=== PATIENT | female | born 1965 | race Hispanic/Latino ===

== ENCOUNTER 2017-11-26 00:45 | Observation (INO) | payer BC ==
[2017-11-26 00:51] VITALS: BMI 31.7
--- NOTE | 2017-11-26 01:07 | ED PDOC ---
Arrival/HPI - General Chief Complaint: Chest Pain Time Seen by Provider: 11/26/17 00:50 Historian: Patient - History of Present Illness Narrative History of Present Illness (Text): 11/26/17 01:07 A 52 year old female, whose past medical history includes seizure disorder and colitis, presents to the emergency department complaining of intermittent chest discomfort since yesterday. Patient reports chest is a pressure like sensation with intermittent dyspnea on exertion and an occasional non-productive cough. Patient reports no history of fever or chills. Patient denies any fever, chills, nausea, vomiting, diarrhea, urinary symptoms, back pain, neck pain, headache, dizziness, or any other complaints. PMD: Dr. Davila Time/Duration: Other (earlier today) Symptom Onset: Gradual Symptom Course: Unchanged Activities at Onset: Light Context: Home Past Medical History - Provider Review Nursing Documentation Reviewed: Yes - Cardiac Hx Pacemaker: No - Neurological Hx Paralysis: No - Endocrine/Metabolic Hx Endocrine Disorders: (HYPOGLYCEMIA) - Hematological/Oncological Hx Blood Transfusions: No Hx Blood Transfusion Reaction: No - Musculoskeletal/Rheumatological Hx Musculoskeletal Disorders: Yes Hx Falls: No Hx Herniated Disk: Yes (CERVICAL [id number]) - Gastrointestinal Hx Gastrointestinal Disorders: Yes Hx Colitis: Yes - Psychiatric Hx Depression: No Hx Emotional Abuse: No Hx Physical Abuse: No Hx Substance Use: No - Surgical History Hx Tonsillectomy: Yes - Anesthesia Hx Anesthesia: Yes Hx Anesthesia Reactions: No Hx Malignant Hyperthermia: No - Suicidal Assessment Feels Threatened In Home Enviroment: No Family/Social History - Physician Review Nursing Documentation Reviewed: Yes Family/Social History: Unknown Family HX Smoking Status: Never Smoked Hx Alcohol Use: Yes (OCCASIONALLY AND LESS) Hx Substance Use: No Allergies/Home Meds Allergies/Adverse Reactions: Allergies Penicillins Allergy (Verified 11/26/17 00:52) RASH Sulfa (Sulfonamide Antibiotics) Allergy (Verified 11/26/17 00:52) RASH Home Medications: Home Meds Medication Instructions Recorded Confirmed Acetaminophen [Hca Non-Aspirin Es] 2 tab PO Q8 PRN 12/26/11 12/26/11 Cholecalciferol [Vitamin D3] 5,000 iu PO DAILY 12/26/11 12/26/11 Levocetirizine Dihydrochlori 5 mg PO QAM PRN 12/26/11 12/26/11 [Levocetirizine Dihydrochloride] Mesalamine [Asacol] 800 mg PO TID 12/26/11 12/26/11 Metaxalone [Skelaxin] 800 mg PO Q8 PRN 12/26/11 12/26/11 Promethazine Hydrochloride 1 tsp PO TID PRN 12/26/11 12/26/11 [Phenergan] Olopatadine 0.1% Opht [Patanol 2 drop OP PRN 12/27/11 12/27/11 0.1% Opht Soln] Review of Systems - Physician Review All systems were reviewed & negative as marked: Yes - Review of Systems Constitutional: absent: Fevers, Night Sweats Respiratory: Cough. absent: SOB Cardiovascular: Chest Pain (+chest pressure and discomfort), HURD Gastrointestinal: absent: Diarrhea, Nausea, Vomiting Genitourinary Female: absent: Urine Output Changes Musculoskeletal: absent: Back Pain, Neck Pain Neurological: absent: Headache, Dizziness Physical Exam Vital Signs Reviewed: Yes Vital Signs Temp Pulse Resp BP Pulse Ox 11/26/17 01:02 98.4 F 89 18 172/84 H 98 Temperature: Afebrile Blood Pressure: Normal Pulse: Tachycardic Respiratory Rate: Normal Appearance: Positive for: Well-Appearing, Non-Toxic, Comfortable Pain Distress: None Mental Status: Positive for: Alert and Oriented X 3 - Systems Exam Head: Present: Atraumatic, Normocephalic Pupils: Present: PERRL Extroacular Muscles: Present: EOMI Conjunctiva: Present: Normal Mouth: Present: Moist Mucous Membranes Neck: Present: Normal Range of Motion Respiratory/Chest: Present: Clear to Auscultation, Good Air Exchange. No: Respiratory Distress, Accessory Muscle Use Cardiovascular: Present: Regular Rate and Rhythm, Normal S1, S2. No: Murmurs Abdomen: No: Tenderness, Distention, Peritoneal Signs Back: Present: Normal Inspection Upper Extremity: Present: Normal Inspection. No: Cyanosis, Edema Lower Extremity: Present: Normal Inspection. No: Edema Neurological: Present: GCS=15, CN II-XII Intact, Speech Normal Skin: Present: Warm, Dry, Normal Color. No: Rashes Psychiatric: Present: Alert, Oriented x 3, Normal Insight, Normal Concentration Medical Decision Making ED Course and Treatment: 11/26/17 01:07 Impression: 52 year old female presenting to the emergency room complaining of chest discomfort. Plan: -- EKG -- Cardia ISO -- CMP -- CBC -- COAGs -- Chest Xray -- Reassess and disposition Prior Visits: Notes and results from previous visits were reviewed. Progress Notes: 11/26/17 01:08 EKG: Ordered, reviewed, and independently interpreted the EKG. Rate : 89 BPM Rhythm : NSR Interpretation : No ST-segment elevations or depressions, no T-wave inversions, normal intervals. 11/26/17 04:[address] Davila who accepts patient into admission and requests Dr. Munoz, dancing instructor, on consult. - Scribe Statement The provider has reviewed the documentation as recorded by the Spencer Raines All medical record entries made by the Saloibe were at my direction and personally dictated by me. I have reviewed the chart and agree that the record accurately reflects my personal performance of the history, physical exam, medical decision making, and the department course for this patient. I have also personally directed, reviewed, and agree with the discharge instructions and disposition.\ Disposition/Present on Arrival - Present on Arrival Any Indicators Present on Arrival: No History of DVT/PE: No History of Uncontrolled Diabetes: No Urinary Catheter: No History of Decub. Ulcer: No History Surgical Site Infection Following: Orthopedic Procedures - Disposition Have Diagnosis and Disposition been Completed?: Yes Diagnosis: Chest pain Disposition: HOSPITALIZED Disposition Time: 05:04 Condition: STABLE
[2017-11-26 02:38] LABS: ALB/GLOB RATIO 1.1 (1.1-1.8); ALBUMIN 3.9 g/dL (3.0-4.8); ALT/SGPT 31 U/L (7-56); AST/SGOT 33 U/L (14-36); BLOOD UREA NITROGEN 11 mg/dL (7-21); CALCIUM 9.1 mg/dL (8.4-10.5); GFR NON-AFRICAN AMERICAN > 60
[2017-11-26 02:39] LABS: HEMOGLOBIN 13.4 g/dL (12.0-16.0); MEAN CELL VOLUME 88.1 fl (80.0-105.0); MEAN CORPUSCULAR HEMOGLOBIN 29.5 pg (25.0-35.0); MEAN CORPUSCULAR HGB CONC 33.4 g/dl (31.0-37.0); MEAN PLATELET VOLUME 9.7 fl (7.0-11.0); RBC 4.55 10^6/uL (3.5-6.1); RED CELL DISTRIBUTION WIDTH 13.3 % (11.5-14.5); WHITE BLOOD COUNT 10.3 10^3/ul (4.5-11.0)
[2017-11-26 02:43] LABS: INR 1.15; PROTHROMBIN TIME 13.2 SECONDS (9.4-12.5)
[2017-11-26 02:49] LABS: TROPONIN I < 0.01 ng/mL
[2017-11-26 07:20] VITALS: O2SAT 95
[2017-11-26 07:56] VITALS: RESP 20
--- NOTE | 2017-11-26 09:38 | RAD ---
Date of service: 11/26/2017 HISTORY: pain COMPARISON: 12/06/2011 FINDINGS: LUNGS: No active pulmonary disease. PLEURA: No significant pleural effusion identified, no pneumothorax apparent. CARDIOVASCULAR: Normal. OSSEOUS STRUCTURES: No significant abnormalities. VISUALIZED UPPER ABDOMEN: Normal. OTHER FINDINGS: None. IMPRESSION: No active disease.
[2017-11-26] MEDS ORDERED: Mesalamine 800 mg DR Tab PO SCH (10:00)
[2017-11-26] MEDS ORDERED: ESLICARBAZEPINE ACETATE 400 MG PO SCH (10:00)
--- NOTE | 2017-11-26 10:10 | CARD ---
APPROVED REPORT Date of service: 11/26/2017 EKG Measurement Heart [id number] NC 122P61 [id number] <Conclusion> Normal sinus rhythm Normal ECG
[2017-11-26] MEDS ORDERED: Iohexol 350 MG/100 ML VIAL ONE (10:36)
[2017-11-26 11:31] LABS: B-TYPE NATRIURETIC PEPTIDE 98.7 pg/mL (0-450); TROPONIN I < 0.01 ng/mL
[2017-11-26] MEDS ORDERED: APTIOM PO SCH (12:18)
[2017-11-26] MEDS: APTIOM PO SCH (12:28)
--- NOTE | 2017-11-26 12:48 | CT ---
Date of service: 11/26/2017 PROCEDURE: CT Chest with and without contrast HISTORY: pleuritic cp COMPARISON: None available. TECHNIQUE: Contiguous axial images were obtained through the chest with intravenous contrast enhancement. Sagittal and coronal reconstructions were performed. IV contrast: 100 cc of Omni 350 Radiation dose (DLP): 709 mGy-cm. This CT exam was performed using one or more of the following dose reduction techniques: Automated exposure control, adjustment of the mA and/or kV according to patient size, and/or use of iterative reconstruction technique. FINDINGS: LUNGS: Patchy infiltrates are seen in the right lower lobe most consistent with pneumonia MEDIASTINUM: Unremarkable thoracic aorta. No aneurysm or dissection. Normal sized heart. Main pulmonary artery unremarkable. No vascular congestion. No lymphadenopathy. PLEURA: No pleural fluid. No pneumothorax. BONES: No fracture. No destructive lesion. UPPER ABDOMEN: Grossly unremarkable. OTHER FINDINGS: None. IMPRESSION: Patchy infiltrates are seen in the right lower lobe most consistent with pneumonia
--- NOTE | 2017-11-26 13:02 | CARD ---
APPROVED REPORT Date of service: 11/26/2017 EKG Measurement Heart [id number] NM 130P48 [id number] <Conclusion> Normal sinus rhythm
[2017-11-26] MEDS ORDERED: Influenza Vaccine 60 mcg/0.5 mL SYR (4YR UP) IM ONE (13:10)
[2017-11-26] MEDS: Albuterol-Ipratrop 3 mg / 0.5 (3 ml) UD IH SCH ×2 (15:02→20:01)
[2017-11-26] MEDS: Mesalamine 800 mg DR Tab PO SCH (18:39)
--- NOTE | 2017-11-26 21:50 | HP ---
HISTORY OF PRESENT ILLNESS: A 52-year-old white female with history of seizure disorder. Patient was in her usual state of health until approximately 3 days before admission when she developed some cough, some shortness of breath. Patient denied any fever or chills at that point. Over the next 2 to 3 days, the symptoms progressed to the point where she had some right upper chest pain, anterior chest pain, and cough, shortness of breath and some wheezing. Patient came by ambulance to the hospital, was admitted with the chest pain, rule out cardiac chest pain. Patient has no past medical history of cardiac disease in the past, has no family history of cardiac disease. She is a nonsmoker, nondrinker. She does not use any illicit drugs. She has a history of seizure disorder and sees Dr. Madden as an outpatient for her seizures which have been well controlled. She is a nonsmoker. REVIEW OF SYSTEMS: Pertinent only for shortness of breath, cough and chest pain in the left upper chest and some wheezing. Patient denies any fever or chills. Denies any sputum production. Patient on cardiovascular is negative, is positive only for right upper chest pain. Denies any palpitations, diaphoresis, lightheadedness, dizziness, nausea, radiation of pain. GI is negative for nausea, vomiting, diarrhea. Neurological is negative for syncope, lightheadedness, dizziness, headache. is negative for dysuria, hematuria or back pain. There is no travel history. SOCIAL HISTORY: As stated above. PAST MEDICAL HISTORY: Only pertinent for seizures. FAMILY HISTORY: Unavailable at this point. PHYSICAL EXAMINATION: GENERAL: Shows a well-developed, well-nourished white female, in no apparent distress. HEENT: Essentially within normal limits. HEART: Regular sinus rhythm. No S3 or murmurs. There is no rubs, heaves or wheeze. CHEST: Shows some rhonchi and some slight rales at the right upper chest and the right anterior chest. There is no tenderness on palpation of the chest wall. ABDOMEN: Soft. Bowel sounds are normoactive. No hepatosplenomegaly. EXTREMITIES: No cyanosis, clubbing or edema. NEUROLOGIC: Sensation is intact. IMPRESSION: Chest pain and possible bronchitis and pleuritis. PLAN: IV antibiotics, bronchodilators, CT of the chest. Continue her antiseizure medications. Lauri Davila MD [facility] # [id number]
[2017-11-27] MEDS: Albuterol-Ipratrop 3 mg / 0.5 (3 ml) UD IH SCH ×2 (01:42→08:08)
[2017-11-27 06:56] VITALS: BP 147/85; TEMP 99
[2017-11-27 06:57] LABS: HDL CHOLESTEROL 41 mg/dL (29-60)
[2017-11-27 07:19] LABS: LDL CHOLESTEROL 98 mg/dL (0-129)
[2017-11-27] MEDS: APTIOM PO SCH (10:13)
[2017-11-27] MEDS: Mesalamine 800 mg DR Tab PO SCH (10:13)
[2017-11-27 10:37] VITALS: PULSE 106
--- NOTE | 2017-11-27 16:00 | CARD ---
APPROVED REPORT Date of service: 11/27/2017 EXAM: Two-dimensional and M-mode echocardiogram with Doppler and color Doppler. INDICATION Chest Pain 2D DIMENSIONS Left Atrium (2D)3.9 (1.6-4.0cm)IVSd0.9 (0.7-1.1cm) LVDd3.9 (3.9-5.9cm)PWd1.1 (0.7-1.1cm) LVDs2.4 (2.5-4.0cm)FS (%) 38.5 % LVEF (%)69.3 (>50%) M-Mode DIMENSIONS Aortic Root2.20 (2.2-3.7cm)Aortic Cusp Exc.1.60 (1.5-2.0cm) Aortic Valve AoV Peak Rkbtinpu559.0cm/Floresita Peak GR.15mmHg Mitral Valve MV E Faystwyt85.1cm/sMV A Qdwoenvz60.4cm/sE/A ratio1.1 TDI E/Lateral E'0.0E/Medial E'0.0 Tricuspid Valve TR Peak [id number]/sRAP [id number] Peak Gr.9mmHg [id number] LEFT VENTRICLE The left ventricle is normal size. There is normal left ventricular wall thickness. The left ventricular function is normal. The left ventricular ejection fraction is within the normal range. There is normal LV segmental wall motion. RIGHT VENTRICLE The right ventricle is normal size. The right ventricular systolic function is normal. ATRIA The left atrium size is normal. The right atrium size is normal. The interatrial septum is intact with no evidence for an atrial septal defect. AORTIC VALVE The aortic valve is normal in structure. No aortic regurgitation is present. There is no aortic valvular stenosis. MITRAL VALVE The mitral valve is normal in structure. There is no mitral valve regurgitation noted. TRICUSPID VALVE The tricuspid valve is normal in structure. There is trace tricuspid regurgitation. PULMONIC VALVE The pulmonary valve is normal in structure. GREAT VESSELS The aortic root is normal in size. The IVC is normal in size and collapses >50% with inspiration. PERICARDIAL EFFUSION There is no pleural effusion. There is no pericardial effusion. <Conclusion> Normal study.
--- NOTE | 2017-11-27 18:33 | CON ---
DATE: 11/27/2017 CONSULTATION INDICATIONS: Chest pain. HISTORY OF PRESENT ILLNESS: This is a 52-year-old woman admitted on 11/26/2017 with a short history of cough and shortness of breath for several days and pressure sensation in the upper chest on the day of admission. The symptoms have improved in the hospital. There is no evidence of acute myocardial infarction by initial EKG or two troponins. She has noticed some dyspnea on exertion recently, but no orthopnea, PND, syncope, presyncope, lightheadedness, dizziness, vertigo, palpitations, edema or claudication. No fever, chills, rigor, sweats, hemoptysis, abdominal pain, nausea, vomiting, diarrhea, constipation, melena. PAST MEDICAL HISTORY: Notable for seizure disorder, treated by Dr. Madden. She has a history of colitis. There is no history of rheumatic fever, myocardial infarction, angina, congestive heart failure or arrhythmia. There is no history of diabetes, hypertension, hyperlipidemia, gout, stroke or TIA. MEDICATIONS AT THE TIME OF ADMISSION: Included: Asacol, Vibramycin. ALLERGIES: SHE NOTES ALLERGIES TO SULFA MEDICATIONS AND PENICILLINS. SOCIAL HISTORY: She lives at home. She is a teacher. She is ambulatory. She does not smoke cigarettes. She does not drink alcohol. FAMILY HISTORY: Noncontributory. REVIEW OF SYSTEMS: A 10-point review of systems is otherwise unremarkable except as noted above. PHYSICAL EXAMINATION: GENERAL: She is a well-developed woman, sitting on her bed in telemetry, in no acute distress. VITAL SIGNS: Notable for sinus rhythm, 72 beats per minute; afebrile; blood pressure 147/85; respirations 20; O2 sat 96% on room air. HEENT: Reveals no neck vein distention, thyromegaly, carotid bruits. Mucous membranes moist. Conjunctivae pink. NECK: Supple. LUNGS: Lung montero clear throughout. HEART: Examination of the heart revealed normal first and second heart sounds. No murmur, gallop, rub or click. PMI is not palpable. ABDOMEN: Soft. Bowel sounds present. No mass, organomegaly, tenderness, rebound or guarding. EXTREMITY: Revealed no cyanosis, clubbing or edema. NEUROLOGICAL: She is awake, alert and oriented. PSYCHIATRIC: Normal as to mood and affect. SKIN: Warm and dry. No rash or cellulitis. LABORATORY AND IMAGING: CBC is unremarkable. PT, INR, PTT unremarkable. Electrolytes: BUN, creatinine, blood sugar, LFTs all unremarkable. CK 21. Two troponins negative. BNP 98.7. Total cholesterol 178, LDL 98, triglycerides 141, HDL 41. IMPRESSION: Giovana Gutiérrez is a 52-year-old woman with a short history of what sounds like an upper respiratory infection, bronchitis, culminating in chest discomfort with no evidence of myocardial infarction by EKG. Her initial EKG demonstrated regular sinus rhythm with mild nonspecific ST wave changes. A followup EKG on the same day shows no change. Initial chest x-ray was read as no active disease. A CT scan of the chest, however, showed patchy infiltrates in the right lower lobe, most consistent with pneumonia. She is being treated with antibiotics. I have ordered an echocardiogram. I will make arrangements for an outpatient nuclear stress test. I anticipate an early discharge and close outpatient followup. She will keep us informed of any symptoms, especially if chest pains or pressure is to recur. Additional medications include Asacol, aspirin and Motrin. Yang Munoz MD MTDD
--- NOTE | 2017-11-28 06:21 | DS ---
HOSPITAL COURSE: Giovana Gutiérrez is a 52-year-old white female admitted to the hospital with chest pain. CPKs and troponins were negative x2. Seen in consultation by Dr. Munoz. Patient was found on chest x-ray normal, but on CAT scan, the patient was found to have right lower lobe pneumonia. Patient has 99 degree temperature. She is on IV antibiotics. She did have some wheezing and rhonchi, but lesser than previous. She is afebrile. She is ambulating in the hallway. She has marked shortness of breath. Patient will be discharged home on p.o. antibiotics, bronchodilators and Mucinex. She will be followed as an outpatient, will have an echo today. She . Patient will follow me in 5 days. FINAL DISCHARGE DIAGNOSES: Pneumonia and noncardiac chest pain. Lauri Davila MD
== END 2017-11-27 12:40 | disposition home or self-care (01) ==
LOC: ED 00:45 → ERH 04:22 → 2RNO 08:10
PROVIDERS: ADMIT Internal Medicine; ATTEND Internal Medicine
DX: J18.9 Pneumonia, unspecified organism (principal); R07.89 Other chest pain; G40.909 Epilepsy, unspecified, not intractable, without status epilepticus; Z88.0 Allergy status to penicillin; Z88.2 Allergy status to sulfonamides
CPT/HCPCS: 36415; 71045; 71270; 80053; 80061; 82550; 83615; 83880; 84484; 85027; 85610; 85730; 87449; 93005; 93306; 94640; 94760; 99283; G0378; Q9967